=== PATIENT | female | born 1995 | race Two or more races ===

== ENCOUNTER 2025-03-30 13:35 | Emergency (ER) | payer OTHER ==
[~2025-03-30] VITALS: Ht 149.9 cm; Wt 81.6 kg
[2025-03-30] MEDS ORDERED: ORPHENADRINE CITRATE 30 MG/ML AMPUL IM STA (15:43)
[2025-03-30] MEDS ORDERED: KETOROLAC TROMETHAMINE 60 MG VIAL IM ONE ×2 (15:45→16:20)
[2025-03-30] MEDS ORDERED: ORPHENADRINE CITRATE 30 MG/ML AMPUL ONE (16:20)
== END 2025-03-31 01:07 | disposition home or self-care (01) ==
LOC: ER 13:36
DX: S93.491A Sprain of other ligament of right ankle, initial encounter (principal); X50.1XXA Overexertion from prolonged static or awkward postures, initial encounter; Y93.89 Activity, other specified; Y92.89 Other specified places as the place of occurrence of the external cause